=== PATIENT | female | born 1995 | race Caucasian/White ===

== ENCOUNTER 2019-08-01 11:17 | Observation (INO) | payer MEDICAID, OTHER ==
[~2019-08-01] VITALS: Ht 152.4 cm; Wt 77.1 kg
[2019-09-08] MEDS ORDERED: PNV1TABL76 PO (15:37)
== END 2019-09-08 16:00 | disposition home or self-care (01) ==
LOC: 8 EST LDRP 09-08 12:13
PROVIDERS: ADMIT Obstetrics & Gynecology; ATTEND Obstetrics & Gynecology
DX: O62.9 Abnormality of forces of labor, unspecified (principal); Z3A.38 38 weeks gestation of pregnancy
CPT/HCPCS: 99281; G0378

== ENCOUNTER 2019-09-09 01:55 | Inpatient (IN) | payer MEDICAID, OTHER ==
[~2019-09-09] VITALS: Ht 152.4 cm; Wt 72.6 kg
[~2019-09-09 01:55] MED LIST: PNV1TABL76 PO
[2019-09-09] MEDS: LACTATED RINGERS 1,000 ML IV SCH ×3 (02:45→04:50)
[2019-09-09] MEDS ORDERED: DEXT 5%/LR + PITOCIN 20UNITS/L 1,000 ML IV SCH ×2 (02:51→14:00)
[2019-09-09] MEDS ORDERED: BUTORPHANOL TARTRATE 2 MG/ML VIAL IV PRN (03:00)
[2019-09-09] MEDS ORDERED: LIDOCAINE HCL 1% 20ML VIAL (Pyxis) INJ INFIL SCH (03:00)
[2019-09-09] MEDS ORDERED: NALOXONE HCL 0.4 MG/ML 1ML VIAL IM PRN (03:00)
[2019-09-09] MEDS ORDERED: METHYLERGONOVINE MALEATE 0.2 MG/ML IM PRN (03:00)
[2019-09-09] MEDS ORDERED: CARBOPROST TROMETHAMINE 250 MCG/ML AMPUL IM PRN (03:00)
[2019-09-09 03:27] LABS: BASOPHILS % 0.2 % (0.0-2.0); EOSINOPHILS % 0.1 % (0.0-5.0); HEMATOCRIT. 35.8 % (36.0-48.0); HEMOGLOBIN. 12.2 g/dL (12.0-16.0); LYMPHOCYTES % 9.2 % (20.0-50.0); MEAN CORPUSCULAR HEMOGLOBIN 29.4 pg (28.0-32.0); MEAN CORPUSCULAR VOLUME 86.5 fL (81.0-99.0); MEAN PLATELET VOLUME 8.5 fl (7.4-10.4); NEUTROPHILS % 85.5 % (40.0-76.0); PLATELET 260 x1000/uL (130-400); RED BLOOD CELL COUNT 4.14 mill/uL (4.2-5.4); RED CELL DISTRIBUTION WIDTH 14.9 % (11.6-14.6)
[2019-09-09 03:43] LABS: INR 0.9; PARTIAL THROMBOPLASTIN TIME 26.9 sec (23.4-31.0); PROTHROMBIN TIME 9.3 sec (9.6-11.0)
[2019-09-09 03:53] LABS: *COCAINE SCREEN URINE NEGATIVE (NEGATIVE); METHADONE URINE SCREEN NEGATIVE (NEGATIVE); OPIATES URINE SCREEN NEGATIVE (NEGATIVE); PHENCYCLIDINE URINE SCREEN NEGATIVE (NEGATIVE)
[2019-09-09 03:54] LABS: *AMPHETAMINES SCREEN URINE NEGATIVE (NEGATIVE); *BARBITURATES SCREEN URINE NEGATIVE (NEGATIVE); *BENZODIAZEPINES SCREEN URINE NEGATIVE (NEGATIVE); CANNABINOID URINE SCREEN NEGATIVE (NEGATIVE)
[2019-09-09 04:27] LABS: HEPATITIS B SURFACE ANTIGEN NEGATIVE
[2019-09-09] MEDS ORDERED: ROPIVACAINE HCL/PF 0.2% (2MG/ML) EPID 200ML EPI ONE (04:45)
[2019-09-09] MEDS ORDERED: FENTANYL CITRATE/PF 50MCG/ML 2ML VIAL ONE (04:47)
[2019-09-09] MEDS ORDERED: SODIUM CHLORIDE 0.9% 10ML VIAL ONE (04:47)
[2019-09-09] MEDS ORDERED: BUPIVACAINE HCL/PF 0.25% (2.5MG/ML) 10ML ONE (04:47)
[2019-09-09 07:57] LABS: CLARITY URINE CLOUDY (CLEAR); COLOR URINE YELLOW (YELLOW); KETONES URINE TRACE (NEGATIVE); LEUKOCYTE ESTERASE URINE NEGATIVE (NEGATIVE); NITRITE URINE NEGATIVE (NEGATIVE); OCCULT BLOOD URINE TRACE (NEGATIVE); PH URINE 6.5 (4.5-8.0); PROTEIN URINE NEGATIVE (NEGATIVE); SPECIFIC GRAVITY URINE 1.023 (1.005-1.030); UROBILINOGEN URINE 0.2 E.U./dL (0.2-1.0)
[2019-09-09] MEDS ORDERED: LACTATED RINGERS 1,000 ML IV SCH (13:45)
[2019-09-09] MEDS ORDERED: BENZOCAINE/LANOLIN/ALOE VERA SPRAY TOP PRN (14:00)
[2019-09-09] MEDS ORDERED: GLYCERIN/WITCH HAZEL LEAF MEDICATED PAD TOP PRN (14:00)
[2019-09-09] MEDS ORDERED: LANOLIN OINT 7GM TUBE TOP PRN (14:00)
[2019-09-09] MEDS ORDERED: DIPHENHYDRAMINE 25MG CAPSULE PO PRN (14:00)
[2019-09-09] MEDS ORDERED: IBUPROFEN 400MG TABLET PO PRN (14:00)
[2019-09-09] MEDS ORDERED: ACETAMINOPHEN WITH CODEINE 300/30MG TABLET PO PRN (14:00)
[2019-09-09] MEDS ORDERED: HEMORRHOIDAL SUPP PR PRN (14:00)
[2019-09-09] MEDS ORDERED: BISACODYL 10MG SUPP PR PRN (14:00)
[2019-09-09] MEDS ORDERED: ACETAMINOPHEN 500MG TABLET PO NR (15:15)
[2019-09-09 16:20] VITALS: BP 125/75
[2019-09-09 20:45] VITALS: BP 105/61
[2019-09-09] MEDS ORDERED: DOCUSATE SODIUM 100MG CAPSULE PO SCH (21:00)
[2019-09-09] MEDS: SIMETHICONE 80MG TABLET CHEW PO SCH (21:24)
[2019-09-09] MEDS: MAGNESIUM/ALUMINUM HYDROXIDE/SIMETHICONE 30ML UDC PO SCH (21:24)
[2019-09-10] MEDS: IBUPROFEN 800MG TABLET PO PRN ×3 (01:35→19:40)
[2019-09-10 04:45] VITALS: BP 103/61
[2019-09-10 07:49] LABS: BASOPHILS % 0.2 % (0.0-2.0); EOSINOPHILS % 0.3 % (0.0-5.0); HEMATOCRIT. 29.1 % (36.0-48.0); HEMOGLOBIN. 9.9 g/dL (12.0-16.0); LYMPHOCYTES % 16.5 % (20.0-50.0); MEAN CORPUSCULAR HEMOGLOBIN 29.4 pg (28.0-32.0); MEAN CORPUSCULAR VOLUME 86.7 fL (81.0-99.0); MEAN PLATELET VOLUME 8.1 fl (7.4-10.4); PLATELET 210 x1000/uL (130-400); RED BLOOD CELL COUNT 3.35 mill/uL (4.2-5.4); RED CELL DISTRIBUTION WIDTH 14.9 % (11.6-14.6)
[2019-09-10 07:54] VITALS: BP 103/60
[2019-09-10] MEDS: MAGNESIUM/ALUMINUM HYDROXIDE/SIMETHICONE 30ML UDC PO SCH ×3 (08:41→18:21)
[2019-09-10] MEDS: FERROUS SULFATE 325MG TABLET PO SCH ×3 (08:42→18:21)
[2019-09-10] MEDS: PRENATAL VIT/FE FUMARATE/FA TABLET PO SCH (08:42)
[2019-09-10] MEDS: SIMETHICONE 80MG TABLET CHEW PO SCH ×3 (08:42→18:00)
[2019-09-10 16:00] VITALS: BP 110/63
[2019-09-10 19:45] VITALS: BP 114/68
[2019-09-11 02:00] VITALS: BP 104/69
[2019-09-11] MEDS ORDERED: IBUP-2030 PO (07:08)
[2019-09-11] MEDS ORDERED: FERR325T23 PO (07:08)
[2019-09-11 07:29] VITALS: BP 106/61
[2019-09-11] MEDS: IBUPROFEN 800MG TABLET PO PRN (08:39)
[2019-09-11] MEDS: PRENATAL VIT/FE FUMARATE/FA TABLET PO SCH (08:39)
[2019-09-11] MEDS: MAGNESIUM/ALUMINUM HYDROXIDE/SIMETHICONE 30ML UDC PO SCH (08:39)
[2019-09-11] MEDS: SIMETHICONE 80MG TABLET CHEW PO SCH (08:39)
[2019-09-11] MEDS: FERROUS SULFATE 325MG TABLET PO SCH (08:39)
== END 2019-09-11 11:20 | disposition home or self-care (01) | DRG 560 ==
LOC: 8 EST LDRP 01:55 → OBSVTOIN 01:55 → 8EST 16:00
PROVIDERS: ADMIT Obstetrics & Gynecology; ATTEND Obstetrics & Gynecology
PROC: 10E0XZZ Delivery of Products of Conception, External Approach (ICD-10-PCS; principal; 2019-09-09)
PROC: 3E0R3BZ Introduction of Anesthetic Agent into Spinal Canal, Percutaneous Approach (ICD-10-PCS; 2019-09-09)
PROC: 00HU33Z Insertion of Infusion Device into Spinal Canal, Percutaneous Approach (ICD-10-PCS; 2019-09-09)
DX: O80 Encounter for full-term uncomplicated delivery (principal); Z37.0 Single live birth; Z3A.39 39 weeks gestation of pregnancy
CPT/HCPCS: 36415; 80305; 81003; 85025; 86592; 86703; 86762; 86850; 86900; 87340; 99281; J2590; J2795; J3010; J3490; J7120